=== PATIENT | female | born 1950 | race Caucasian/White ===

== ENCOUNTER → 2018-10-22 | Outpatient (CLI) | payer MEDICARE, BC ==
[~2018-10-22] MED LIST: CALC500T93 PO; FOLI0.4T2 PO; HYDR-3653 PO; MULT1TAB60 PO; ONDA4TAB7 PO; PHEN200C3 PO; WARF-36 PO; [UNRECOGNIZED DRUG - REMARK] PO
[2018-10-22 14:28] LABS: ALANINE AMINOTRANSFERASE 21 U/L (12-78); ALBUMIN 3.9 g/dL (3.4-5.0); ANION GAP 5 mmol/L (5-15); BASOPHILS # (AUTO) 0.03 x10^3/uL (0-0.1); BASOPHILS % (AUTO) 1 % (0-1); CALCIUM 8.9 mg/dL (8.5-10.1); CHLORIDE 110 mmol/L (98-107); CREATININE 0.77 mg/dL (0.55-1.02); EOSINOPHILS # (AUTO) 0.11 x10^3/uL (0-0.4); EOSINOPHILS % (AUTO) 2 % (1-7); LYMPHOCYTES # (AUTO) 1.54 x10^3/uL (1-3.4); LYMPHOCYTES % (AUTO) 32 % (22-44); MD NO; MEAN CORPUSCULAR HEMOGLOBIN 32.3 pg (27.0-34.8); MEAN CORPUSCULAR HGB CONC 34.2 g/dL (32.4-35.8); MEAN CORPUSCULAR VOLUME 94.4 fL (80-100); MONOCYTES # (AUTO) 0.45 x10^3/uL (0.2-0.8); MONOCYTES % (AUTO) 9 % (2-9); NEUTROPHILS # (AUTO) 2.75 x10^3/uL (1.8-6.8); NEUTROPHILS % (AUTO) 56 % (42-75); PLATELET COUNT 228 x10^3/uL (130-400); RED BLOOD COUNT 4.33 x10^6/uL (3.82-5.3); RED CELL DISTRIBUTION WIDTH 13.8 % (9.6-15.2)
[2018-10-22 14:30] LABS: ALKALINE PHOSPHATASE 123 U/L (45-117); TOTAL PROTEIN 6.9 g/dL (6.4-8.2)
[2018-10-22 14:32] LABS: BILIRUBIN,TOTAL < 0.1 mg/dL (0.2-1.0)
[2018-10-22 15:29] LABS: INTERNATIONAL NORMALIZED RATIO 3.26 (0.93-1.1)
[2018-10-22 15:34] LABS: PROTHROMBIN TIME 32.7 Seconds (9.6-11.5)
== END | disposition home or self-care (01) ==
LOC: STAR 13:11
PROVIDERS: ATTEND Specialist
DX: Z01.818 Encounter for other preprocedural examination (principal); R19.07 Generalized intra-abdominal and pelvic swelling, mass and lump
CPT/HCPCS: 36415; 80053; 85025; 85610; 85730; 93005

== ENCOUNTER 2018-10-26 09:15 | Observation (INO) | payer MEDICARE, BC ==
[~2018-10-26] VITALS: Ht 165.1 cm; Wt 95.0 kg
[~2018-10-26 09:15] MED LIST changes: +BUPIVACAINE/PF 0.25% ONE; +CEFAZOLIN 1,000 MG ONE; +DEXAMETHASONE 4 MG/ML, 1ML ONE; +FENTANYL PF 100 MCG/2ML ONE; -HYDR-3653 PO; +LIDOCAINE 4%, 4 ML SYR/CANN TP ONE; +LIDOCAINE-MPF 2% ,5ML ONE; +MIDAZOLAM 1 MG/ML, 2ML ONE; -ONDA4TAB7 PO; +ONDANSETRON 2MG/ML, 2ML ONE; +PROPOFOL 10 MG/ML, 20ML ONE; +ROCURONIUM 10MG/ML,5ML ONE; +SODIUM CHLORIDE 0.9% PF 10ML ONE
[2018-10-26] MEDS ORDERED: LACTATED RINGERS 1,000 ML IV SCH (09:41)
[2018-10-26] MEDS ORDERED: GABAPENTIN 300 MG CAPSULE PO STA (09:44)
[2018-10-26] MEDS ORDERED: ACETAMINOPHEN 500 MG TABLET PO STA (09:44)
[2018-10-26] MEDS ORDERED: SCOPOLAMINE PATCH, 1.5MG PATCH.TD72 TD STA (09:44)
[2018-10-26 10:55] LABS: INTERNATIONAL NORMALIZED RATIO 1.15 (0.93-1.1)
[2018-10-26] MEDS ORDERED: NEOSTIGMINE 1 MG/ML, 10ML ONE (15:36)
[2018-10-26] MEDS ORDERED: GLYCOPYRROLATE 0.2MG/1ML, 5ML ONE (15:36)
[2018-10-26] MEDS ORDERED: SODIUM CHLORIDE 0.9% PF 10ML ONE (16:09)
[2018-10-26] MEDS ORDERED: EPHEDRINE 50 MG/ML, 1ML ONE (16:09)
[2018-10-26] MEDS ORDERED: ROCURONIUM 10MG/ML,5ML ONE (16:17)
[2018-10-26] MEDS ORDERED: FENTANYL PF 100 MCG/2ML ONE ×2 (16:49→17:52)
[2018-10-26] MEDS: FENTANYL PF 100 MCG/2ML IV PRN ×3 (17:29→17:56)
[2018-10-26] MEDS ORDERED: LABETALOL 5MG/ML, 20ML IV PRN (17:30)
[2018-10-26] MEDS ORDERED: METOPROLOL 1 MG/ML, 5ML IV PRN (17:30)
[2018-10-26] MEDS ORDERED: MEPERIDINE/PF 25MG/0.5ML IVPush PRN (17:30)
[2018-10-26] MEDS ORDERED: OXYcodone 5 MG/5 ML ORAL.SOL UDC PO PRN (17:30)
[2018-10-26] MEDS ORDERED: hydrALAzine 20 MG/ML, 1ML IV PRN (17:30)
[2018-10-26] MEDS ORDERED: HYDROmorphone 2 MG/ML, 1ML ONE (17:38)
[2018-10-26] MEDS: HYDROmorphone 2 MG/ML, 1ML IVPush PRN ×4 (17:39→20:05)
[2018-10-26] MEDS ORDERED: MIDAZOLAM 1 MG/ML, 2ML ONE (18:04)
[2018-10-26] MEDS ORDERED: hydrALAzine 20 MG/ML, 1ML ONE (18:27)
[2018-10-26] MEDS ORDERED: MIDAZOLAM 1 MG/ML, 2ML IV PRN (18:30)
[2018-10-26] MEDS ORDERED: HYDROcodone/APAP 7.5-325MG/15ML UDC ONE (18:41)
[2018-10-26] MEDS: HYDROcodone/APAP 7.5-325MG/15ML UDC PO PRN ×2 (18:49→21:24)
[2018-10-26] MEDS ORDERED: ONDANSETRON 2MG/ML, 2ML ONE (19:47)
[2018-10-26] MEDS ORDERED: METOCLOPRAMIDE 5 MG/ML, 2ML IV PRN (20:00)
[2018-10-26] MEDS ORDERED: ONDANSETRON 2MG/ML, 2ML IV PRN (20:00)
[2018-10-26 20:44] VITALS: BP 131/55
[2018-10-26] MEDS ORDERED: ONDANSETRON 2MG/ML, 2ML IVPush PRN (23:30)
[2018-10-26] MEDS: KETOROLAC 30 MG/1 ML IVPush PRN (23:41)
[2018-10-26 23:45] VITALS: BP 125/49
[2018-10-27 03:18] VITALS: BP 124/54
[2018-10-27 07:54] VITALS: BP 125/58
[2018-10-27] MEDS: KETOROLAC 30 MG/1 ML IVPush PRN (08:21)
[2018-10-27] MEDS ORDERED: HYDR-3653 PO (10:10)
[2018-10-27] MEDS ORDERED: ONDA4TAB7 PO (10:11)
[2018-10-27] MEDS ORDERED: ONDANSETRON ODT 4 MG ONE (12:10)
[2018-10-27] MEDS ORDERED: ONDANSETRON ODT 4 MG PO ONE (12:30)
== END 2018-10-27 12:35 | disposition home or self-care (01) ==
LOC: OUT 09:15 → 4NOR 20:41 → OUT 23:08 → 4NOR 23:08 → DCLOUNGE 10-27 12:20
PROVIDERS: ADMIT Specialist; ATTEND Specialist
DX: N83.291 Other ovarian cyst, right side (principal); N85.8 Other specified noninflammatory disorders of uterus; F32.9 Major depressive disorder, single episode, unspecified; M81.0 Age-related osteoporosis without current pathological fracture; G40.909 Epilepsy, unspecified, not intractable, without status epilepticus; E66.01 Morbid (severe) obesity due to excess calories; Z68.35 Body mass index [BMI] 35.0-35.9, adult; Z88.5 Allergy status to narcotic agent; Z88.8 Allergy status to other drugs, medicaments and biological substances; Z87.891 Personal history of nicotine dependence
CPT/HCPCS: 36415; 58552; 85610; 85730; 86850; 86900; 86923; 88112; 88305; 88307; 88331; 94660; 96374; 96376; G0378; J0360; J0690; J1100; J1170; J1885; J2250; J2405; J2704; J2710; J3010; J3490; J7120; Q0162; S2900; 96375